=== PATIENT | female | born 1995 | race Caucasian/White ===

== ENCOUNTER → 2018-10-06 | Outpatient (CLI) | payer BC ==
--- NOTE | 2018-10-07 14:07 | RADIOLOGY IMAGING REPORT ---
FACILITY: [facility] [place] PATIENT NAME: CELESTINE RAZO : [id number] MR: [id number] V: [id number] EXAM DATE: [id number] ORDERING PHYSICIAN: INDER ORTEZ TECHNOLOGIST: Quyen Lopez RT(R)(CT) PROCEDURE:US RIGHT BREAST COMPARISON:Right breast Ultrasound dated 09/23/16 INDICATIONS:Palpable Right breast lump 12 o'clock position AREA SCANNED: The 11, 12, 1, 2 & 3 o'clock positions of the Right breast FINDINGS: In the 12 o'clock position of the Right breast 3cm from the nipple there is a well circumscribed ovoid hypoechoic nodule with acoustic enhancement. This nodule measures 4.3 x 2.5 x 2.9cm. The nodule is wider than tall. In the 12 o'clock position of the Right breast 2cm from the nipple there appears to be an irregular fluid collection measuring approximately 6.8 x 5.3 x 5mm. In the 3 o'clock position of the Right breast 2cm from the nipple there is a 9.5 x 5.7 x 5.4mm noncircumscribed lobular hypoechoic lesion with no acoustic shadowing. This is slightly increased when compared to the prior study. DIAGNOSTIC CATEGORY 3--PROBABLY BENIGN FINDING. RECOMMENDATIONS: SIX MONTH FOLLOW-UP ULTRASOUND: RIGHT BREAST. IMPRESSION: 1. A 6 month follow up Right breast Ultrasound is recommended to document stability of the above mentioned findings unless clinical findings warrant more immediate attention. Dictated by: Tali Carcamo M.D. on 10/06/2018 at 16:21 Transcribed by: ELIZABETH on 10/07/2018 at 12:03 Approved by: Tali Carcamo M.D. on 10/07/2018 at 14:04 [facility]
== END ==
LOC: US 08:26
PROVIDERS: ATTEND Nurse Practitioner Family
DX: N63.10 Unspecified lump in the right breast, unspecified quadrant (principal)